=== PATIENT | male | born 1955 | race Caucasian/White ===

== ENCOUNTER 2019-12-05 08:59 | Emergency (ER) | payer BC, MEDICARE ==
[~2019-12-05] VITALS: Ht 167.6 cm; Wt 86.2 kg
[~2019-12-05 08:59] MED LIST: ASPIRIN81 MG PO; CRESTOR10 MG PO; GABAPENTIN300 MG PO; LOPRESSOR25 MG PO; METFORMIN HCL500 MG PO; PEPCID20 MG PO; PLAVIX75 MG PO; TRICOR145 MG PO
--- OUTSIDE RECORDS SUMMARY | 2019-12-05 09:23 | XMS REPORT | Continuity of Care Document ---
Author Author Elaina Pond [employer], JAYLENE WATERS Organization [employer] Address Unknown Phone Unavailable Care Team Providers Care Lean Sensei Name Role Phone [employer] Information [employer] Unavailable Un available Problems Problem Status Onset Date Classification Date Reported Comments Source I67.1; CEREBRAL ANEURYSM, NONRUPTURED Active 09/03/2015 [facility] CEREBRAL ANEURYSM, NONRUPTURED Active [facility] Medications No Data Provided for This Section Allergies, Adverse Reactions, Alerts Substance Category Reaction Severity Reaction type Status Date Reported Comments Source penicillins Assertion Allergy to substance Active [facility] Immunizations No Data Provided for This Section Results Order Name Results Value Reference Range Date Interpretation Comments Source CHEM PANEL eGFR 46 09/09/2015 Result Comment: The eGFR is calculated using the CKD-EPI formula. In most young, healthy individuals the eGFR will be >90 mL/min/1.73m2. The eGFR declines with age. An eGFR of 60-89 may be normal in some populations, particularly the elderly, for whom the CKD-EPI formula has not been extensively validated. Use of the eGFR is not recommended in the following populations:

Individuals with unstable creatinine concentrations, including patients and those with serious co-morbid conditions.

Patients with extremes in muscle mass or diet.

The data above are obtained from the National Kidney Disease Education Program (NKDEP) which additionally recommends that when the eGFR is used in patients with extremes of body mass index for purposes of drug dosing, the eGFR should be multiplied by the estimated BMI. [facility] CHEM PANEL POC Creatinine 1.6 0.5 - 1.4 09/09/2015 [facility] Pathology Reports No Data Provided for This Section Diagnostic Reports Report Value Date Source Brain w/wo contrast MRI Patien t Name: AJYLENE AMAYA : 1955; Age: 59 years y/o Male MR: [id number] Study: Brain w/wo contrast MRI 09/09/2015 6:27 PM CDT Ordering Physician: Tay Smith MD Clinical Indication: Headaches. History of nonruptured cerebral aneurysm. Comparison: None TECHNIQUE: TECHNIQUE: Multiplanar pre- and post-gadolinium contrast-enhanced MRI of the brain is performed on a 1.5 Seble magnet. Contrast: 9.5 cc of gadolinium was administered. FINDINGS: BRAIN PARENCHYMA General: Mild diffuse age-appropriate cerebral atrophy associated with mild nonspecific abnormal signal in the periventricular deep white matter and subcortical white matter most consistent with old microangiopathic ischemic change. Acute findings: No evidence of acute intracranial hemorrhage, mass, mass effect, midline shift, or extra-axial fluid collection. Ventricles: Normal size and appearance. Diffusion weighted images: No evidence of restricted diffusion to suggest acute or subacute ischemia. Gradient images: No magnetic susceptibility is present to suggest recent or remote intracranial hemorrhage. Vasculature: The major intracranial flow voids are present. The dural venous sinus flow voids are grossly normal. Enhancement: No abnormal enhancement. CEREBELLOPONTINE REGIONS, MIDLINE STRUCTURES, AND SKULL BASE Cerebellopontine angles: Grossly normal on this standard resolution examination. Midline structures: The pituitary gland and midline structures are normal. Skull base: Normal without focal lesion. PARANASAL SINUSES AND REMAINING SOFT TISSUES Paranasal sinuses: Clear. Mastoids: Clear. Orbits: The visualized portions are normal. IMPRESSION: 1. Mild diffuse age-appropriate cerebral atrophy associated with mild old microangiopathic ischemic change. SL: MAX-PC 09/09/2015 [facility] contrast MRA Study: B [facility] wo contrast MRA 09/09/2015 6:27 PM CDT Patient Name: JAYLENE AMAYA MR: [id number] : 1955; Age: 59 years y/o Male Ordering Physician: Tay Smith MD Clinical Indication: Headache. History of nonruptured cerebral aneurysm. Comparison: None Technique: Magnetic resonance angiography of the [place] was performed without contrast. Three-dimensional rotational images were also prepared. FINDINGS Anterior circulation: Internal carotid arteries: No focal stenosis or aneurysm. Middle cerebral arteries: No focal stenosis or aneurysm in the M1 and M2 segments. The peripheral MCA branches appear normal. Anterior cerebral arteries: No focal stenosis or aneurysm. Normal anterior communicating artery. Posterior Circulation: Vertebrobasilar system: No focal stenosis or aneurysm. Small right vertebral artery terminating in a PICA. A small 2 mm vascular infundibulum is seen on the left side of the basilar tip related to the persistent origin. Posterior cerebral arteries: Persistent origin of the left posterior cerebral artery. Superior cerebellar arteries: Normal in appearance. AICA: Normal in appearance. PICA: Normal in appearance IMPRESSION: 1. Significant stenosis or definitive an eurysm. Comparison with prior examinations would be helpful when available. 2. Persistent origin of the left p osterior cerebral artery with small residual vascular infundibulum seen involving the left side of the basilar tip. 3. 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 09/09/2015 [facility] Consultation Notes No Data Provided for This Section Discharge Summaries No Data Provided for This Section History and Physicals No Data Provided for This Section Vital Signs No Data Provided for This Section Encounters Location Location Details Encounter Type Encounter Number Reason For Visit Attending Provider ADM Date DC Date Status Source [facility] [id number] Tay PotterSarah 09/09/2015 09/10/2015 [facility] Procedures No Data Provided for This Section Assessment and Plan No Data Provided for This Section Plan of Care No Data Provided for This Section Social History Social History Date Source No data available for this section 09/10/2015 [facility] Family History No Data Provided for This Section Advance Directives No Data Provided for This Section Functional Status No Data Provided for This Section
--- NOTE | 2019-12-05 09:44 | Emergency Department Note ---
History of Present Illnes History of Present Illness Chief Complaint: General Medicine Complaints History of Present Illness This is a 64 year old male arrives to the ED with right heel pain after sustaining a laceration yesterday 2 PM. Patient states he is a diabetic, sugars are generally well-controlled. Patient states the primary reason for coming in with the pain. Historian: Patient Arrival Mode: Car Onset (how long ago): hour(s) Radiation: Reports non-radiation Severity: mild Onset quality: sudden Duration (how long): hour(s) Progression: unchanged Chronicity: new Context: Reports trauma/injury Relieving factors: none Exacerbating factors: none Past Medical/Family History Physician Review I have reviewed the patient's past medical and family history. Any updates have been documented here. Past Medical History Recent Fever: No Clinical Suspicion of Infectio: No New/Unexplained Change in Ment: No Past Medical History: Hypertension, Diabetes, Hepatitis C, CAD, Hyperlipedemia Social History Smoking Cessation: Former smoker Physically hurt or threatened: No Other Last Tetanus: unknown Review of Systems Review of Systems Constitutional: Reports no symptoms EENTM: Reports no symptoms Cardiovascular: Reports no symptoms Respiratory: Reports no symptoms Gastrointestinal: Reports no symptoms Genitourinary: Reports no symptoms Musculoskeletal: Reports back pain Integumentary: Reports no symptoms Neurological: Reports no symptoms Psychological: Reports no symptoms Endocrine: Reports no symptoms Hematological/Lymphatic: Reports no symptoms Physical Exam Related Data Allergies: Coded Allergies: Penicillins (Verified Allergy, Severe, 12/05/19) Triage Vital Signs Vital Signs Date Time Temp Pulse Resp B/P (MAP) Pulse Ox O2 Delivery O2 Flow Rate FiO2 12/05/19 09:36 98.3 77 18 108/73 100 Room Air Vital signs reviewed: Yes Physical Exam CONSTITUTIONAL Constitutional: Present well-developed, Present well-nourished HENT HENT: Present normocephalic, Present atraumatic, Present oropharynx clear/moist, Present nose normal HENT L/R: Present left ext ear normal, Present right ext ear normal EYES Eyes: Reports PERRL, Reports conjunctivae normal NECK Neck: Present ROM normal PULMONARY Pulmonary: Present effort normal, Present breath sounds normal CARDIOVASCULAR Cardiovascular: Present regular rhythm, Present heart sounds normal, Present capillary refill normal, Present normal rate GASTROINTESTINAL Abdominal: Present soft, Present nontender, Present bowel sounds normal GENITOURINARY Genitourinary: Present exam deferred SKIN Skin: Present warm, Present dry, Present other (approximately 4-5 cm laceration noted over right heel, normal plantar dorsiflexion, gastrocnemius is normal and there is no concerns of Achilles tendon rupture. Wound base is visualized and no tendon involvement, no superimposed cellulitis or crepitus present at this time) MUSCULOSKELETAL Musculoskeletal: Present ROM normal NEUROLOGICAL Neurological: Present alert, Present oriented x 3, Present no gross motor or sensory deficits PSYCHOLOGICAL Psychological: Present mood/affect normal, Present judgement normal Assessment & Plan Medical Decision Making MDM 64-year-old male arrives to the ED with complaints of heel pain after laceration, patient is a diabetic and therefore high risk of wound infection, local wound care was done and patient was instructed to soak with Betadine and chlorhexidine at home. Patient was empirically covered with broad-spectrum antibiotics and discharged home on the same. Patient yi stick reviewed in the ED was within normal limits. Straight-red flags for return given. Assessment & Plan Final Impression: (1) Laceration of heel Depart Disposition: HOME, SELF-CARE Last Vital Signs Date Time Temp Pulse Resp B/P (MAP) Pulse Ox O2 Delivery O2 Flow Rate FiO2 12/05/19 09:36 98.3 77 18 108/73 100 Room Air Home Meds Active Scripts Clindamycin Hcl (CLINDAMYCIN HCL) 300 Mg Capsule, 300 MG PO Q6HR, #40 Prov:ELIAZAR LARSONDO 12/05/19 Reported Medications Rosuvastatin Calcium (CRESTOR) 10 Mg Tab, 10 MG PO DAILY 01/26/14 Fenofibrate (TRICOR) 145 Mg Tab, 145 MG PO DAILY, #30 TAB 01/26/14 Metoprolol Tartrate (LOPRESSOR) 25 Mg Tab, 25 MG PO BID, #60 TAB 01/26/14 Clopidogrel Bisulfate* (PLAVIX) 75 Mg Tablet, 75 MG PO DAILY, #30 TAB 01/26/14 Metformin Hcl (METFORMIN HCL) 500 Mg Tablet, 500 MG PO DAILY, #60 TAB 01/26/14 Gabapentin (GABAPENTIN) 300 Mg Capsule, 300 MG PO BID, #60 CAP 01/26/14 Famotidine (PEPCID) 20 Mg Tablet, 20 MG PO DAILY, #60 TAB 01/26/14 Aspirin (ASPIRIN) 81 Mg Tab.chew, 81 MG PO DAILY 01/26/14 Rosuvastatin Calcium (CRESTOR) 10 Mg Tab, 10 MG PO DAILY 01/26/14 ELIAZAR LARSON DO Dec 05, 2019 09:44
[2019-12-05] MEDS ORDERED: AMOXICILLIN/CLAVULANATE K 875 MG TAB PO STA (10:07)
[2019-12-05] MEDS ORDERED: KETOROLAC TROMETHAMINE 30 MG/ML VIAL IV STA (10:07)
[2019-12-05] MEDS ORDERED: CLINDAMYCIN HCL 150 MG CAP PO ONE (10:15)
[2019-12-05] MEDS ORDERED: HYDROCODONE/APAP 10MG-325MG TAB PO ONE (10:15)
[2019-12-05] MEDS ORDERED: CLINDAMYCIN HC300 MG PO (10:17)
[2019-12-05 10:42] VITALS: BP 121/76
== END 2019-12-05 10:40 | disposition home or self-care (01) ==
LOC: ER 09:03
DX: M79.671 Pain in right foot (principal); S91.311D Laceration without foreign body, right foot, subsequent encounter; W26.8XXD Contact with other sharp object(s), not elsewhere classified, subsequent encounter; Y92.008 Other place in unspecified non-institutional (private) residence as the place of occurrence of the external cause; E11.9 Type 2 diabetes mellitus without complications; I10 Essential (primary) hypertension; I25.10 Atherosclerotic heart disease of native coronary artery without angina pectoris; E78.5 Hyperlipidemia, unspecified; B19.20 Unspecified viral hepatitis C without hepatic coma
CPT/HCPCS: 36415; 82948; 99283; J1885